=== PATIENT | male | born 1995 | race Two or more races ===

== ENCOUNTER 2023-02-05 22:44 | Emergency (ER) | payer MEDICAID ==
[~2023-02-05] VITALS: Ht 170.2 cm; Wt 79.4 kg
--- NOTE | 2023-02-06 00:10 | NUR ---
BIBS FOR C/O SYNCOPAL EPISODE AND DIZZINESS. REPORTE A LUMP/ HEMATOMA ON HIS RIGHT SIDE OF HIS ABDOMEN. PATIENT IS AOX4, AMBULATORY. ABLE TO MAKE NEEDS KNOWN. PLACED COMFORTABLY IN BED. VITALS CHECKED.
--- NOTE | 2023-02-06 00:30 | NUR ---
EKG DONE AT BEDSIDE
--- NOTE | 2023-02-06 00:31 | NUR ---
CALLED PHARMACY FOR BLOOD DRAW
[2023-02-06 01:04] LABS: BASOPHILS % (AUTO) 0.5 % (0.0-2.0); EOSINOPHILS % (AUTO) 0.9 % (0.0-6.0); HEMATOCRIT 41 % (39-51); HEMOGLOBIN 13.5 g/dL (13.5-17.5); LYMPHOCYTES # (AUTO) 1.3 K/uL (0.8-4.8); LYMPHOCYTES % (AUTO) 18.9 % (20.0-44.0); MEAN CORPUSCULAR HGB CONC 33 g/dl (31.0-36.0); MEAN CORPUSCULAR VOLUME 88 fL (80-96); MONOCYTES # (AUTO) 0.3 K/uL (0.1-1.30); MONOCYTES % (AUTO) 4.9 % (2.0-12.0); NEUTROPHILS # (AUTO) 4.9 K/uL (1.8-8.9); NEUTROPHILS % (AUTO) 74.8 % (43.0-81.0); PLATELET COUNT (AUTO) 330 K/uL (150-450); WHITE BLOOD COUNT (AUTO) 6.6 K/uL (4.3-11.0)
[2023-02-06 01:26] LABS: CALCIUM, SERUM 8.9 mg/dL (8.5-10.1); CARBON DIOXIDE 30 mmol/L (21-32); CHLORIDE 105 mmol/L (98-107); CREATININE 0.9 mg/dL (0.6-1.3); GLUCOSE 94 mg/dL (74-106); POTASSIUM 4.1 mmol/L (3.5-5.1); SODIUM SERUM 140 mmol/L (136-145); UREA NITROGEN, BLOOD 15 mg/dL (7-18)
[2023-02-06] MEDS ORDERED: IV NS 0.9% 1,000 ML IV ONE (01:30)
[2023-02-06 01:32] LABS: ALANINE AMINOTRANSFERASE 13 U/L (12-78); ALKALINE PHOSPHATASE 74 U/L (46-116); ASPARTATE AMINOTRANSFERASE 5 U/L (15-37); BILIRUBIN,DIRECT 0.1 mg/dL (0.0-0.2); BILIRUBIN,TOTAL 0.2 mg/dL (0.2-1.0); TOTAL PROTEIN, SERUM 6.8 g/dL (6.4-8.2)
[2023-02-06] MEDS ORDERED: IOHEXOL-300 100 ML VIAL IV ONE (01:43)
[2023-02-06] MEDS ORDERED: CT SWABBABLE VALVE TRANS SET 1 EA INFUS.SET MC ONE (01:43)
[2023-02-06] MEDS ORDERED: IV NS 0.9% 250 ML IV ONE (01:43)
--- NOTE | 2023-02-06 01:47 | NUR ---
IV ANITA G20 INSERTED ON LEFT AC
--- NOTE | 2023-02-06 01:50 | NUR ---
BROUGHT TO CT DEPT
--- NOTE | 2023-02-06 04:32 | NUR ---
IV ANITA REMOVED
--- NOTE | 2023-02-06 04:32 | NUR ---
Patient discharged to home in stable condition. Written and verbal after care instructions given. Patient verbalizes understanding of instruction.
[2023-02-06 04:34] VITALS: BP 112/67
== END 2023-02-06 04:34 | disposition home or self-care (01) ==
LOC: ER 22:51
DX: S30.1XXA Contusion of abdominal wall, initial encounter (principal); S09.8XXA Other specified injuries of head, initial encounter; R42 Dizziness and giddiness; R55 Syncope and collapse; X58.XXXA Exposure to other specified factors, initial encounter; Y93.89 Activity, other specified; Y92.89 Other specified places as the place of occurrence of the external cause; Y99.8 Other external cause status
CPT/HCPCS: 99285; 70450; 93005; 74177; 85025; 80048; 80076; 36415; 84484; J7030; J7050; Q9967